=== PATIENT | female | born 2005 | race Caucasian/White ===

== ENCOUNTER → 2024-02-17 | Outpatient (CLI) | payer MEDICAID, SELFPAY ==
--- NOTE | 2024-02-17 16:00 | XR_ITS ---
Examination: CT abdomen and pelvis without contrast. Coronal 3-D reconstructions. Sagittal 2-D reconstructions. Date and time of exam:February 17, 2024 1657 hrs. Indications: Right upper abdominal pain beginning September 2022 CTDI: vol (mGy): 9.45 DLP: (mGycm): 483 Technique: Axial images of the abdomen have been obtained, 3 mm slice thickness Intravenous contrast material has not been administered. Low dose protocols were performed. One or more of the following dose reduction techniques were used; automated exposure control, adjustment of the mA and/or KV according to patient size, use of iterative reconstruction technique. Findings: No focal liver or splenic lesions Absent gallbladder No pancreatic mass No extrahepatic biliary tract dilatation No renal or ureteral calculi, no hydronephrosis 20 mm fat-containing umbilical hernia Normal appendix No bowel obstruction No diverticulitis No pelvic mass Contracted urinary bladder The osseous structures are intact Impression: No acute process in the abdomen or pelvis
[2024-02-17 16:53] LABS: HCG Qualitative,Urine Negative
== END | disposition home or self-care (01) ==
PROVIDERS: PCP Nurse Practitioner; Referring Provider Nurse Practitioner; Visit Provider Nurse Practitioner
DX: R10.11 Right upper quadrant pain (principal); Z32.00 Encounter for pregnancy test, result unknown
CPT/HCPCS: 74176; 81025